=== PATIENT | male | born 1980 | race African-American/Black ===

== ENCOUNTER 2017-03-14 22:39 | Emergency (ER) | payer OTHER ==
[2017-03-14 21:06] LABS: URINE SOURCE CLEAN CATCH
[2017-03-14 21:12] LABS: URINE APPEARANCE CLEAR; URINE BILIRUBIN NEG (NEG); URINE BLOOD NEG (NEG); URINE COLOR YELLOW; URINE GLUCOSE NEG (NEG); URINE KETONE NEG (NEG); URINE LEUKOCYTE ESTERASE NEG (NEG); URINE NITRATE NEG (NEG); URINE PH 6.5 (5-8); URINE PROTEIN NEG (NEG); URINE SPECIFIC GRAVITY 1.021 (1.003-1.035)
[2017-03-14 21:13] LABS: CULTURE INDICATED? NO
[2017-03-16 21:09] LABS: CHLAMYDIA TRACH Not Detected (Not Detected); N GONOR Detected (Not Detected)
== END 2017-03-14 23:32 | disposition home or self-care (01) ==
LOC: CED 22:39
PROVIDERS: Nurse Practitioner Family
DX: N34.2 Other urethritis (principal); F17.210 Nicotine dependence, cigarettes, uncomplicated
CPT/HCPCS: 81003; 87491; 87591; 96372; 99283; J0696